=== PATIENT | male | born 1960 | race Caucasian/White ===

== ENCOUNTER 2025-06-24 06:17 | Day surgery (SDC) | payer OTHER, SELFPAY ==
--- NOTE | 2025-04-05 13:25 | CM ---
Demographics: confirmed
Living situation: three story home with
Support Person Post Operatively:
History of
VN: No
SNF: no
Outpatient: Patient given number for [facility]
Has patient purchased required equipment: Cm encouraged patient to review BCOS packet
PCP: Active
Pharmacy: [facility]
Post Operative Discharge Plan: SDS, home with VN.
--- NOTE | 2025-06-10 11:46 | VNURNOTE ---
Addendum entered by Filomena Huffman RN 06/10/25 13:06:
Rec'ed call back from pt. Explained same day joint protocol. Pt confirmed that he has a walker. He verbalized understanding to bring it with him day of surgery. Patient to schedule outpt PT - advised him to call [facility] and schedule for 06/27.
Reviewed pet policy; he has five dogs; he verbalized understanding and is agreeable. Referral in [facility].
Original Note:
Chart reviewed. Patient scheduled for SDS 06/24 R [facility]. [facility] liaison called pt to explain [facility] joint program. No answer, left message. Contact number provided. [facility] referral placed in [facility].
[2025-06-12 11:25] LABS: Hematocrit 51.1 % (39.0-52.0); Hemoglobin 17.3 g/dL (13.0-18.0); Mean Corp Hgb Conc. 33.9 g/dL (33.0-37.0); Mean Corpuscular Volume 91.7 fL (80.0-94.0); Platelet Count 274 10^3/uL (130-400); Red Cell Dist. Width 12.5 % (11.5-14.5)
[2025-06-12 11:37] LABS: ALT (SGPT) 37 U/L (0-50); AST (SGOT) 33 U/L (17-59); Albumin 4.7 g/dl (3.5-5.0); Alkaline Phosphatase 82 U/L (38-126); Blood Urea Nitrogen 26 mg/dl (9-20); Calcium 9.8 mg/dl (8.4-10.2); Carbon Dioxide 29 mmol/L (22-30); Chloride 102 mmol/L (98-107); Glucose 81 mg/dl (70-99); Potassium 4.4 mmol/L (3.5-5.1); Sodium 138 mmol/L (135-145); Total Protein 8.2 g/dl (6.3-8.2); eGFR > 60.00
[2025-06-12 12:08] LABS: Glycohemoglobin (HgbA1c) 5.5 % (4.0-5.9)
[2025-06-13 06:37] VITALS: BMI 23.8
[2025-06-24] VITALS (15 sets, daily range): BP systolic 89–160; BP diastolic 61–100; BMI 23.8
[2025-06-24] MEDS: CELEBREX 200 MG PO (07:54)
[2025-06-24] MEDS: TYLENOL 650 MG PO (07:54)
[2025-06-24] MEDS: NORMOSOL-R/PLASMALYTE-A 1000 IV (08:23)
[2025-06-24] MEDS: ANCEF 5 IV (14:10)
[2025-06-24] MEDS: CYKLOKAPRON 650 MG PO (14:10)
[2025-06-24] MEDS: ROXICODONE 5 MG PO (14:30)
[2025-06-24] MEDS: TORADOL 15 MG IV (14:59)
[2025-06-24] MEDS: LIDOCAINE 4% PATCH 2 PATCH TOPICAL (15:05)
== END 2025-06-24 16:48 | disposition home health service (06) ==
LOC: SDS 06:17
PROVIDERS: ATTENDING PHYSICIAN Specialist; FAMILY PHYSICIAN Physician Assistant; OTHER PHYSICIAN Physician Assistant
DX: M17.11 Unilateral primary osteoarthritis, right knee (principal)
CPT/HCPCS: 27447; 36415; 73560; 80053; 83036; 85027; 87070; 93005; 97163; C1713; C1776

== ENCOUNTER 2025-07-12 07:02 | Outpatient (RCR) | payer OTHER, SELFPAY | END 2025-07-12 23:59 | disposition home or self-care (01) | LOC: RPT 07:02 | PROVIDERS: ATTENDING PHYSICIAN Specialist; FAMILY PHYSICIAN Physician Assistant | DX: Z47.1 Aftercare following joint replacement surgery (principal); Z73.6 Limitation of activities due to disability; R26.89 Other abnormalities of gait and mobility; M62.81 Muscle weakness (generalized); M25.561 Pain in right knee; Z96.651 Presence of right artificial knee joint | CPT/HCPCS: 97010; 97110; 97116; 97140; 97162; 97530 ==

== ENCOUNTER 2025-08-14 10:10 | Outpatient (RCR) | payer OTHER, SELFPAY | END 2025-08-14 23:59 | disposition home or self-care (01) | LOC: RPT 10:10 | PROVIDERS: ATTENDING PHYSICIAN Specialist; FAMILY PHYSICIAN Physician Assistant | DX: Z47.1 Aftercare following joint replacement surgery (principal); Z73.6 Limitation of activities due to disability; R26.89 Other abnormalities of gait and mobility; M62.81 Muscle weakness (generalized); M25.561 Pain in right knee; Z96.651 Presence of right artificial knee joint | CPT/HCPCS: 97010; 97110; 97140; 97530; 97535 ==